=== PATIENT | female | born 1950 | race Hispanic/Latino ===

== ENCOUNTER → 2018-03-28 | Outpatient (CLI) | payer OTHER ==
[~2018-03-28] MED LIST: REGADENOSON 0.4 MG/5 ML SYR IV ONE
--- NOTE | 2018-03-28 12:20 | Cardiology Report ---
DATE OF STUDY: March 28, 2018 PROCEDURE INDICATION: Chest pain concerning for angina pectoris. PROCEDURE PERFORMED: Lexiscan stress test. INTERPRETATION: Rest heart rate was 104, blood pressure 133/71. Resting EKG was normal sinus rhythm with nonspecific repolarization abnormalities. After Lexiscan was administered, heart rate fidel to 121 beats per minute and blood pressure increased to 143/72. There were no significant ST changes or arrhythmias throughout stress or recovery. Myocardial perfusion reveals normal rest and stress perfusion. Gated images demonstrate hyperdynamic left ventricular systolic function, normal regional wall motion and left ventricular ejection fraction more than 70%. CONCLUSIONS 1. Normal hemodynamic response to Lexiscan stress. 2. Normal electrocardiographic response to Lexiscan stress. 3. Normal myocardial perfusion at rest and stress. 4. Hyperdynamic left ventricular systolic function with normal regional wall motion and left ventricular ejection fraction more than 70%. Job#: [id number]
== END ==
LOC: NM 07:52
PROVIDERS: ATTEND Internal Medicine Cardiovascular Disease
DX: R07.9 Chest pain, unspecified (principal); I20.9 Angina pectoris, unspecified
CPT/HCPCS: 78452; 93017; A9502; J2785